=== PATIENT | male | born 1960 | race Caucasian/White ===

== ENCOUNTER 2017-03-07 14:15 | Emergency (ER) | payer OTHER ==
--- NOTE | 2017-03-07 14:53 | EDM.PDOC ---
ED HPI GENERAL MEDICAL PROBLEM - General Chief Complaint: Upper Extremity Injury/Pain Stated Complaint: Right finger laceration Time Seen by Provider: 03/07/17 14:40 Source of Information: Reports: Patient, RN Notes Reviewed History Limitations: Reports: No Limitations - History of Present Illness INITIAL COMMENTS - FREE TEXT/NARRATIVE: 57 year old male presents to the ED with a laceration to his right fifth finger. Injury occurred around 1pm today. He was bit by a horse while he was feeding the horse carrots. He says the horse bit down and held onto his finger for approximately 30 seconds. The distal part of his nail is gone. He is unsure of his last tetanus. CMS intact. Right 5-Little finger Pain Score (Numeric/FACES): 5 - Related Data Allergies Allergy/AdvReac Type Severity Reaction Status Date / Time No Known Allergies Allergy Verified 03/07/17 14:41 Home Meds: Home Meds Cephalexin [Keflex] 500 mg PO Q6HR #28 cap 03/07/17 [Rx] Review of Systems - Review of Systems Review Of Systems: See Below Musculoskeletal: Reports: Other (finger pain) Skin: Reports: Wound Neurological: Reports: No Symptoms. Denies: Numbness, Tingling ED EXAM, GENERAL - Physical Exam Exam: See Below Exam Limited By: No Limitations General Appearance: Alert, WD/WN, No Apparent Distress, Anxious Extremities: Other (swelling to distal fifth finger. Deep laceration with no obvious deformity. ) Neurological: Alert, Oriented, Normal Cognition, No Motor/Sensory Deficits Skin Exam: Warm, Dry, Normal Color, Other (Deep 4cm laceration to the tip of his 5th finger. The wound is circumferential. The distal half of his nail is avlulsed. There is a lateral laceration to the nail bed. He has good CMS distally. The skin is pink with good capillary refill. He has full ROM of the tip of the finger. ) ED TRAUMA EXTREMITY PROCEDURES - Laceration/Wound Repair Right Finger Lac/Wound Length In cm: 4 Appearance: Subcutaneous, Linear, Clean Distal NVT: Neuro & Vascular Intact, No Tendon Injury Anesthetic Type: Digital Local Anesthesia - Bupivicaine (Marcaine): 0.5% Plain Local Anesthetic Volume: 5cc Skin Prep: Saline Exploration/Debridement/Repair: Wound Explored, In a Bloodless Field, Explored to Base, No Foreign Material Found Closed With: Sutures Suture Size: 4-0 # of Sutures: 5 Suture Type: Nylon, Interrupted, Simple Tetanus Status Addressed: Yes Complications: No Complication Description: A total of 7 sutures were placed. 5 simple, interupted nylon sutures were placed in the skin. 2 simple, interupted, vicryl sutures were placed in the nail and nail bed to close the nail bed laceration. Course - Vital Signs Last Recorded V/S: Last Vital Signs Temp 97.3 F 03/07/17 14:41 Pulse 80 03/07/17 14:41 Resp 12 03/07/17 14:41 BP 143/84 H 03/07/17 14:41 Pulse Ox 98 03/07/17 14:41 - Orders/Labs/Meds Orders: Active Orders 24 hr Category Date Time Status Peripheral IV Care [RC] . DIRECTED Care 03/07/17 15:37 Ordered Vaccines to be Administered [RC] PER UNIT ROUTINE Care 03/07/17 14:54 Ordered Sodium Chloride 0.9% [Saline Flush] Med 03/07/17 15:37 Ordered 10 ml FLUSH ASDIRECTED PRN Peripheral IV Insertion Adult [OM.PC] Stat Oth 03/07/17 15:37 Ordered Medication Orders Sodium Chloride (Saline Flush) 10 ml FLUSH ASDIRECTED PRN PRN Reason: Keep Vein Open Meds: Medications Generic Name Dose Route Start Last Admin Trade Name Freq PRN Reason Stop Dose Admin Sodium Chloride 10 ml 03/07/17 15:37 Saline Flush FLUSH ASDIRECTED PRN Keep Vein Open Discontinued Medications Generic Name Dose Route Start Last Admin Trade Name Freq PRN Reason Stop Dose Admin Bupivacaine HCl 10 ml 03/07/17 15:37 03/07/17 16:05 Sensorcaine-Mpf 0.5% INJECT 03/07/17 15:38 10 ml ONETIME ONE Administration Diphtheria/Tetanus/Acell Pertussis 0.5 ml 03/07/17 14:54 03/07/17 15:17 Adacel IM 03/07/17 14:55 0.5 ml .ONCE ONE Administration Cefazolin Sodium/Dextrose 2 gm 50 mls @ 100 mls/hr 03/07/17 15:37 / Premix IV 03/07/17 16:06 ONETIME ONE Ketorolac Tromethamine 30 mg 03/07/17 15:37 Toradol IVPUSH 03/07/17 15:38 ONETIME ONE - Re-Assessments/Exams Free Text/Narrative Re-Assessment/Exam: X-rays of the right fifth finger reveal tuft fracture with minimal displacement. Patient was placed in a splint after wound closure. IV was attempted. After unsuccessful attempt, the patient refused an IV. He was then given Keflex 500mg PO. Digital block was adequate to control his pain. Toradol was ordered but cancelled after unsuccessful IV attempt. Patient was educated on wound care and f/u instructions. [facility] Discharge instructions as documented. Departure - Departure Time of Disposition: 16:37 Disposition: Home, Self-Care 01 Condition: Good Clinical Impression: Laceration, Fingernail avulsion, partial, Open fracture of tuft of distal phalanx of finger, Tetanus toxoid inoculation - Discharge Information Prescriptions: Cephalexin [Keflex] 500 mg PO Q6HR #28 cap Instructions: Nail Avulsion, Finger Fracture, [id number], Laceration Care, Adult Referrals: PCP,None [Primary Care Provider] - Forms: ED Department Discharge, ED Return to Work/School Form Additional Instructions: Tuft fracture Rest, ice and elevate Ibuprofen 600mg every 8 hours as needed for pain Splint as tolerated Follow-up in the clinic in 1 week for recheck Laceration with suture repair Try to keep initial dressing in place for 24 hours After 24 hours, you can gently wash the wound with gentle soap and water Do not submerge the area in water until the sutures are out, no washing dishes, swimming etc Apply antibiotic ointment and keep the wound covered for first 2-3 days then leave open to air Keep wound covered if there is a chance it can get dirty Sutures need to be removed in 7 days [facility] removes sutures for free. Their hours are 8am-6pm Saturday through Saturday. Return to clinic if signs or symptoms of infection arise, including increased redness, swelling, drainage, or fever Tylenol or Ibuprofen as needed for pain - My Orders Last 24 Hours: My Active Orders 03/07/17 14:54 Vaccines to be Administered [RC] PER UNIT ROUTINE 03/07/17 15:37 Peripheral IV Care [RC] . DIRECTED Sodium Chloride 0.9% [Saline Flush] 10 ml FLUSH ASDIRECTED PRN Peripheral IV Insertion Adult [OM.PC] Stat - Assessment/Plan Last 24 Hours: My Active Orders 03/07/17 14:54 Vaccines to be Administered [RC] PER UNIT ROUTINE 03/07/17 15:37 Peripheral IV Care [RC] . DIRECTED Sodium Chloride 0.9% [Saline Flush] 10 ml FLUSH ASDIRECTED PRN Peripheral IV Insertion Adult [OM.PC] Stat
[2017-03-07] MEDS ORDERED: Diphtheria,Pertussis(Acell),Tetanus Vaccine 0.5 ML SDV IM ONE (14:54)
[2017-03-07] MEDS ORDERED: Ketorolac 30 MG/ML SDV IVPUSH ONE (15:37)
[2017-03-07] MEDS ORDERED: Sodium Chloride 0.9% 10 ML Syringe FLUSH PRN (15:37)
[2017-03-07] MEDS ORDERED: Bupivacaine 0.5% 10 ML SDV INJECT ONE (15:37)
[2017-03-07] MEDS ORDERED: ceFAZolin 2 GM in Premix Bag 1 BAG IV ONE (15:37)
--- NOTE | 2017-03-07 15:43 | CR ---
Right fifth finger: Four views of the right fifth finger were obtained. Slightly displaced tuft fracture seen within the distal fifth finger. Soft tissue swelling with soft tissue injury is noted. No proximal abnormality is seen. Impression: 1. Soft tissue swelling with soft tissue injury and tuft fracture. Diagnostic code #3
== END 2017-03-07 17:17 | disposition home or self-care (01) ==
LOC: JD.ED 14:15
DX: S62.636B Displaced fracture of distal phalanx of right little finger, initial encounter for open fracture (principal); W55.11XA Bitten by horse, initial encounter
CPT/HCPCS: 12002; 29130; 73140-26-F9; 73140-F9; 90471; 90715; 99283-25